=== PATIENT | female | born 1985 | race Caucasian/White ===

== ENCOUNTER 2017-01-31 14:33 | Emergency (ER) | payer OTHER, SELFPAY ==
[2017-01-31] MEDS ORDERED: HYDROcodone/Acetaminophen 10/325 mg Tablet ONE (14:58)
[2017-01-31] MEDS ORDERED: Ondansetron ODT 4 MG TAB ONE (14:59)
[2017-01-31] MEDS ORDERED: AMOXicillin 250 MG CAP ONE (14:59)
[2017-01-31] MEDS ORDERED: Naproxen 500 MG TAB ONE (14:59)
== END 2017-01-31 15:10 | disposition home or self-care (01) ==
LOC: MADERS 14:33
DX: J01.90 Acute sinusitis, unspecified (principal); K08.89 Other specified disorders of teeth and supporting structures
CPT/HCPCS: 99283; Q0162

== ENCOUNTER 2018-06-21 17:13 | Emergency (ER) | payer SELFPAY ==
[2018-06-21] MEDS ORDERED: methylPREDNISolone Sod Succ/PF 125 MG/2 ML VIAL ONE (17:46)
[2018-06-21] MEDS ORDERED: Famotidine In NaCl 20 mg/50 ml Premix Bag ONE (17:46)
[2018-06-21] MEDS ORDERED: diphenhydrAMINE 50 MG/ML VIAL ONE (17:46)
== END 2018-06-21 19:16 | disposition home or self-care (01) ==
LOC: MADERS 17:13
DX: T63.441A Toxic effect of venom of bees, accidental (unintentional), initial encounter (principal); F45.8 Other somatoform disorders; F17.210 Nicotine dependence, cigarettes, uncomplicated
CPT/HCPCS: 96365; 96375; J1200; J2930

== ENCOUNTER 2019-04-30 13:54 | Emergency (ER) | payer SELFPAY ==
[2019-04-30] MEDS ORDERED: Ibuprofen 600 MG TAB ONE (14:20)
[2019-04-30] MEDS ORDERED: predniSONE 20 MG TAB ONE (14:20)
[2019-04-30] MEDS ORDERED: Famotidine 20 MG TAB ONE (14:20)
== END 2019-04-30 16:06 | disposition home or self-care (01) ==
LOC: MADERS 13:54
DX: T63.441A Toxic effect of venom of bees, accidental (unintentional), initial encounter (principal); F17.210 Nicotine dependence, cigarettes, uncomplicated
CPT/HCPCS: 99282; J7512